=== PATIENT | female | born 1965 | race Caucasian/White ===

== ENCOUNTER → 2023-06-09 14:54 | Outpatient (REF) | payer OTHER, SELFPAY | LOC: HO.CARD 14:54 | PROVIDERS: PCP Internal Medicine; Visit Provider Internal Medicine | DX: Z13.89 Encounter for screening for other disorder (principal) ==

== ENCOUNTER 2023-06-09 15:39 | Emergency (ER) | payer OTHER, SELFPAY ==
[2023-06-09 15:40] VITALS: BP 198/100; PULSE 108; RESP 16; TEMP 36.6; O2SAT 100; BMI 23.0
--- NOTE | 2023-06-09 15:45 | ECG_ITS ---
Test Reason : palpitations Blood Pressure : / mmHG Vent. Rate : 106 BPM Atrial Rate : 106 BPM P-R Int : 152 ms QRS Dur : 082 ms QT Int : 334 ms P-R-T Axes : 068 003 029 degrees QTc Int : 443 ms Sinus tachycardia Nonspecific ST abnormality Abnormal ECG No previous ECGs available Referred By: Generic ED Physician Electronically Signed By:WILLIS DWYER MD
[2023-06-09 15:56] LABS: MANUAL DIFF FLAG NO
[2023-06-09 16:15] LABS: Basophils Absolute Auto 0.1 X10*3/uL (0.0-0.2); Basophils Percent Auto 0.6 % (0-2); Eosinophils Absolute Auto 0.1 X10*3/uL (0.0-0.4); Eosinophils Percent Auto 1.3 % (0-4); Hematocrit 39.9 % (37.0-47.0); Hemoglobin 13.3 g/dl (12.0-16.0); Imm Gran Abs Auto 0.05 X10*3/uL (0.00-0.03); Imm Gran Pct Auto 0.6 % (0.0-0.4); Lymphocytes Absolute Auto 2.7 X10*3/uL (1.2-4.9); Lymphocytes Percent Auto 31.9 % (20-40); Mean Corpuscular HGB Conc 33.3 g/dl (31.0-35.0); Mean Corpuscular Hemoglobin 28.9 pg (27.0-33.0); Mean Corpuscular Volume 86.7 fL (80.0-98.0); Mean Platelet Volume 9.5 fL (9.4-12.3); Monocytes Absolute Auto 0.6 X10*3/uL (0.1-1.2); Monocytes Percent Auto 7.1 % (2-11); Neutrophils Absolute Auto 4.9 x10*3/uL (2.0-8.3); Neutrophils Percent Auto 58.5 % (45-73); Platelet Count 325 X10*3/uL (160-400); Red Cell Distribution Width 13.2 % (11.0-16.0); White Blood Count 8.3 X10*3/uL (4.8-10.8)
--- NOTE | 2023-06-09 16:15 | ED.ARRPALP ---
HPI - Arrhythmia/Palpitations General Chief Complaint: Arrhythmia/Palpitations Stated Complaint: high heart rate? 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 noted heart was beating 130 beats per minute heart thought as AFib unable to finish her echo and send the patient to the ER no EKG rhythm was taken no EKG was done at that time patient had Holter monitoring done yesterday results still pending patient also complained of chest pain which is going on for a while off and on also she had chest pain since yesterday which is resolved chest pain is tightness spinning lasting only for few minutes but today patient had all day tightness patient is simply very anxious her symptoms started after she had COVID in 04/11 Related Data Previous Rx's Medication Instructions Recorded diltiazem HCl 120 mg 120 mg PO QAM #30 caps 06/09/23 capsule,extended release 24 hr (Cardizem CD) Allergies Allergy/AdvReac Type Severity Reaction Status Date / Time Sulfa (Sulfonamide Allergy Rash Verified 06/09/23 15:44 Antibiotics) aluminum hydroxide AdvReac Diarrhea Verified 06/09/23 15:44 [From Maalox Advanced] calcium carbonate AdvReac Diarrhea Verified 06/09/23 15:44 [From Maalox Advanced] magnesium hydroxide AdvReac Diarrhea Verified 06/09/23 15:44 [From Maalox Advanced] simethicone AdvReac Diarrhea Verified 06/09/23 15:44 [From Maalox Advanced] Review of Systems Review of Systems: Yes all other systems are reviewed and are negative PMFSH Social History Social History Advance Directives: No Advance Directives Information Provided: No Physical Exam Vital Signs: Vital Signs: Last Vital Signs Temp 97.9 F 06/09/23 15:40 Pulse 108 H 06/09/23 15:40 Resp 16 06/09/23 15:40 BP 198/100 H 06/09/23 15:40 Pulse Ox 100 06/09/23 15:40 O2 Del Method Room Air 06/09/23 15:40 BMI result Body Mass Index 23.0 Appearance: Alert. Oriented X3. No acute distress. Anxious Eyes: No pallor in ENT: Pharynx normal. Oral Mucosa moist Neck: Normal inspection. Neck supple. Thyroid not palpable CVS: Sinus tachycardia regular rhythm heart rate 110 beats per min no murmur/ rub Respiratory: No respiratory distress. Equal air entry bilateral, no wheezing/rales/rhonchi Abdomen: Soft and nontender. Bowel sounds are present, no mass palpable, no CVA tenderness Skin: Skin warm and dry. Normal skin color. Normal skin turgor. Extremities: No lower extremity edema. No calf tenderness Neuro: Oriented X 3. No motor deficit. 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 06/09/23 15:47 06/09/23 15:47 Labs: Lab Results 06/09/23 06/09/23 Range/Units 15:47 15:48 WBC 8.3 (4.8-10.8) X10*3/uL RBC 4.60 (4.20-5.50) X10*6/uL Hgb 13.3 (12.0-16.0) g/dl Hct 39.9 (37.0-47.0) % MCV 86.7 (80.0-98.0) fL MCH 28.9 (27.0-33.0) pg MCHC 33.3 (31.0-35.0) g/dl RDW 13.2 (11.0-16.0) % Plt Count 325 (160-400) X10*3/uL MPV 9.5 (9.4-12.3) fL Immature Gran % (Auto) 0.6 H (0.0-0.4) % Neut % (Auto) 58.5 (45-73) % Lymph % (Auto) 31.9 (20-40) % Sac % (Auto) 7.1 (2-11) % Eos % (Auto) 1.3 (0-4) % Baso % (Auto) 0.6 (0-2) % Lymph # (Auto) 2.7 (1.2-4.9) X10*3/uL Sac # (Auto) 0.6 (0.1-1.2) X10*3/uL Eos # (Auto) 0.1 (0.0-0.4) X10*3/uL Baso # (Auto) 0.1 (0.0-0.2) X10*3/uL Abs Immat Gran (auto) 0.05 H (0.00-0.03) X10*3/uL Absolute Neuts (auto) 4.9 (2.0-8.3) x10*3/uL Absolute Nucleated RBC 0.000 (0.0-0.012) X10*3/uL Nucleated RBC % (auto) 0.0 (0.0-0.2) /100WBC Hold Purple Top SEE NOTE Sodium 141 (135-145) mmol/L Potassium 3.2 L (3.3-5.1) mmol/L Chloride 104 (96-108) mmol/L Carbon Dioxide 26 (22-29) mmol/L Anion Gap 14 (12-20) BUN 14 (9-16) mg/dL Creatinine 0.87 (0.5-1.4) mg/dL Estim Creat Clear Calc 61.8 Estimated GFR > 60 Random Glucose 139 H (60-115) mg/dL Calcium 10.2 (8.4-10.2) mg/dL Magnesium 2.2 (1.6-2.6) mg/dL Troponin I High Sens < 2.7 (<3.5-17.0) ng/L Discharge Plan Discharge Clinical Impression: Palpitations, Atrial fibrillation Patient Disposition: Home, Self-Care Instructions: A-fib (Atrial Fibrillation) (ED), Heart Palpitations (ED) Additional Instructions: possibly you had atrial fibrillation, unable to confirm as no rhythm strip or EKG at that time start taking cardizem cd 60 mg daily and follow up with pellet mill operator Prescriptions: New diltiazem HCl [Cardizem CD] 120 mg capsule,extended release 24hr 120 mg PO QAM Qty: 30 0RF Interventions: ED Discharge Assessment Last Done: 06/09/23 17:42 Discharge Date/Time: 06/09/23 17:43
[2023-06-09 16:36] LABS: Anion Gap 14 (12-20); Blood Urea Nitrogen 14 mg/dL (9-16); Calcium 10.2 mg/dL (8.4-10.2); Carbon Dioxide 26 mmol/L (22-29); Chloride 104 mmol/L (96-108); Creatinine Clr Calc Pharmacy 61.8; Estimated Glomerular Filt Rate > 60; Glucose Random 139 mg/dL (60-115); Potassium 3.2 mmol/L (3.3-5.1); Sodium 141 mmol/L (135-145)
[2023-06-09 16:57] LABS: Troponin-I High Sensitivity < 2.7 ng/L (<3.5-17.0)
[2023-06-09] MEDS: dilTIAZem HCL 30 MG TABLET PO (17:08)
[2023-06-09] MEDS: Potassium Chloride ER 20 MEQ TAB.ER.PRT PO (17:08)
[2023-06-09 17:25] LABS: Magnesium 2.2 mg/dL (1.6-2.6)
== END 2023-06-09 17:43 | disposition home or self-care (01) ==
LOC: HO.ED 17:17
PROVIDERS: Emergency Provider Internal Medicine; PCP Internal Medicine
DX: I48.91 Unspecified atrial fibrillation (principal); I49.9 Cardiac arrhythmia, unspecified; R00.2 Palpitations; Z79.899 Other long term (current) drug therapy
CPT/HCPCS: 36415; 80048; 83735; 84484; 85025; 93005; 99283

== ENCOUNTER → 2023-06-09 15:45 | Outpatient (BNV) | payer OTHER, SELFPAY | PROVIDERS: Emergency Provider Internal Medicine; PCP Internal Medicine; Visit Provider Internal Medicine Cardiovascular Disease | DX: R00.0 Tachycardia, unspecified (principal) | CPT/HCPCS: 93010 ==

== ENCOUNTER → 2023-06-15 09:56 | Outpatient (REF) | payer OTHER, SELFPAY ==
--- NOTE | 2023-06-15 10:00 | CA_ITS ---
Transthoracic Echocardiogram Patient (Last, First, Middle): Poonam Nguyen, Gender: Female Date of : 1965 Age: 58 Procedure Date: 06/15/2023 Procedure Type: Transthoracic Echocardiogram Location: OP Height: 165.1 cm Weight: 59.88 kg BSA: 1.66 m2 Heart Rate: 89 bpm BP: 128 / 84 mmHg Duplex Trimmer: SB Referring MD: Sami Lin MD Symptoms: R06.09 OTHER DYSPNEA Study Quality: Adequate ECG Rhythm: Sinus Conclusions: - The left ventricular systolic function is normal. The calculated ejection fraction is 62% by biplane method. 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 Trace to mild late systolic regurgitation. Findings Left Ventricle Normal left ventricular cavity size. There is normal left ventricular wall thickness. The left ventricular systolic function is normal. The calculated ejection fraction is 62% by biplane method. There is no evidence of regional wall motion abnormalities. Diastolic function is normal for age. LV peak GLS -16.8%, but suspect some underestimation. Right Ventricle Normal right ventricular cavity size and systolic function. Atria Both atria are normal in size. Aortic Valve There is a normal trileaflet aortic valve. There is no aortic valve stenosis. There is no aortic valve regurgitation. Mitral Valve There is no mitral valve stenosis. 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 Trace to mild late systolic regurgitation. Pulmonic Valve The pulmonic valve is likely normal. Tricuspid Valve Normal tricuspid valve structure. There is mild tricuspid valve regurgitation. There is no evidence of pulmonary hypertension. Great Vessels The asc aorta is normal in size. Venous The inferior vena cava is normal in size and collapses greater than 50% with inspiration. Pericardium/Pleural There is no evidence of pericardial effusion. Prior Study Comparison No prior study available for comparison. Measurements 2D Linear Measurements IVSd: 0.78 0.6-0.9/0.6-1.0 cm LVIDd: 4.35 3.9-5.3/4.2-5.9 cm LVIDd Index: 2.62 2.4-3.2/2.2-3.1 cm/m2 LVIDs: 2.66 2.0-3.6 cm LVPWd: 0.90 0.7-1.1 cm LA Diam: 3.40 2.7-3.8/3.0-4.0 cm LAIDs Index: 2.05 1.5-2.3 cm/m2 LV Mass: 142.31 67-162/88-224 g LV Mass Index: 85.73 43-95/49-115 g/m2 LVOT Diam: 2.00 3.0+(-)1.3 cm 2D Systolic Function EF 4C: 58.00 >55% EF 2C: 65.50 >55% EF BiP: 61.90 >55% Mitral Valve MV Pk E: 0.56 MV PK A: 0.55 MV Decel Time: 151.00 E/A: 1.00 E'Lateral: 12.10 E'Medial: 6.42 E/E' Med: 8.70 E/E' Lat: 4.60 PHT: 44.00 MVA PHT: 5.00 Decel Camp: 3.68 Aortic Valve AoV Pk Jorge: 1.42 AoV Pk Grad: 8.00 JOSE: 2.56 LVOT LVOT Pk Jorge: 1.18 LVOT Mn Jorge: 0.76 LVOT VTI: 0.22 LVOT Pk Grad: 6.00 LVOT Mn Grad: 3.00 LVOT Diam: 2.00 LVOT Area: 3.14 Diastolic Function MV Pk E: 0.56 MV Pk A: 0.55 E/A: 1.00 E'Medial: 6.42 E/E' Med: 8.70 E' Laterial: 12.10 E/E' Lat: 4.60 Right Ventricle TAPSE (mm): 22.30 TVS' Jorge: 12.80 Tricuspid Valve TR Pk Jorge: 2.41 TR Pk Grad: 23.00 RA Press: 3.00 RVSP: 26.00 Great Vessels Aorta Sinus of Valsalva: 2.90 2.0-3.5 cm Ao Asc: 2.70 2.1-3.4 cm Pulmonary Veins Pulm Vein S/D 1.60 Pulmonary Valve PV Pk Jorge: 1.11 Peak PV Grad: 5.00 Updated in Other Vendor System with Status of Final Scott Limon MD electronically signed on 06/16/2023 12:17:49 PM with status of Final
== END ==
LOC: HO.CARD 09:56
PROVIDERS: PCP Internal Medicine; Visit Provider Internal Medicine
DX: R06.09 Other forms of dyspnea (principal)
CPT/HCPCS: 93306; 93356

== ENCOUNTER → 2023-06-15 10:00 | Outpatient (BNV) | payer OTHER, SELFPAY | PROVIDERS: PCP Internal Medicine; Visit Provider Internal Medicine | DX: R06.09 Other forms of dyspnea (principal) | CPT/HCPCS: 93306 ==